=== PATIENT | female | born 1980 | race African-American/Black ===

== ENCOUNTER 2023-01-19 15:09 | Emergency (ER) | payer MEDICAID ==
[~2023-01-19] VITALS: Ht 167.6 cm; Wt 69.9 kg
[~2023-01-19 15:09] MED LIST: ABAC1TAB15 PO; ACET-5629 PO; FERR325E14 PO; FLUC100T PO; IBUP-2213 PO; SULF-58 PO
[2023-01-19 15:14] VITALS: BP 138/89
--- NOTE | 2023-01-19 16:18 | NUR ---
AMB BED 9
[2023-01-19] MEDS ORDERED: KETOROLAC 30 MG/ML VIAL IM ONE (16:30)
[2023-01-19] MEDS ORDERED: SULF-58 PO ×2 (16:35→16:46)
[2023-01-19] MEDS ORDERED: NAPR-54 PO ×2 (16:35→16:46)
[2023-01-19] MEDS ORDERED: BACTO TP ×2 (16:35→16:46)
--- NOTE | 2023-01-19 16:51 | NUR ---
ASSUMED PATIENT CARE FOR DISCHARGE ASSESSMENT.
[2023-01-19 16:53] VITALS: BP 135/78
--- NOTE | 2023-01-19 16:55 | NUR ---
Patient discharged with v/s stable. Written and verbal after care instructions given and explained. Patient alert, oriented and verbalized understanding of instructions. Ambulatory with steady gait. All questions addressed prior to discharge. ID band removed. Patient advised to follow up with PMD. Rx of BACTROBAN, NAPROSYN, BACTRIM given. Patient educated on indication of medication including possible reaction and side effects. Opportunity to ask questions provided and answered.
== END 2023-01-19 16:53 | disposition home or self-care (01) ==
LOC: MED 15:09
DX: L03.211 Cellulitis of face (principal); R59.0 Localized enlarged lymph nodes; Z79.2 Long term (current) use of antibiotics; Z79.1 Long term (current) use of non-steroidal anti-inflammatories (NSAID); Z79.899 Other long term (current) drug therapy; Z79.891 Long term (current) use of opiate analgesic; Z88.0 Allergy status to penicillin
CPT/HCPCS: 90471; 90715; 96372; 99284; J1885

== ENCOUNTER 2024-06-23 19:06 | Emergency (ER) | payer MEDICAID ==
[~2024-06-23] VITALS: Ht 167.6 cm; Wt 71.3 kg
[~2024-06-23 19:06] MED LIST changes: +BACTO TP; +NAPR-337 PO
[2024-06-23 20:36] VITALS: BP 172/84; PULSE 62; RESP 18; TEMP 97.9; O2SAT 100
== END 2024-06-24 01:00 | disposition left against medical advice (07) ==
LOC: MED 19:06
DX: R51.9 Headache, unspecified (principal); R42 Dizziness and giddiness; Z53.21 Procedure and treatment not carried out due to patient leaving prior to being seen by health care provider